=== PATIENT | female | born 1970 | race Caucasian/White ===

== ENCOUNTER 2020-06-10 07:43 | Emergency (ER) | payer OTHER ==
[~2020-06-10] VITALS: Ht 167.6 cm; Wt 97.5 kg
[~2020-06-10 07:43] MED LIST: CYCLOBENZAPRINE5 MG PO; MOBIC7.5 MG PO; MULTIPLE VITAM1 EAC2 PO; PREMPRO 0.625-1 EAC1 PO; SENNA8.6 MG PO
[2020-06-10 07:49] VITALS: BP 140/82
== END 2020-06-10 09:10 | disposition home or self-care (01) ==
LOC: ER 07:43
DX: S20.224A Contusion of middle back wall of thorax, initial encounter (principal); Z90.710 Acquired absence of both cervix and uterus; Z79.899 Other long term (current) drug therapy; Z88.8 Allergy status to other drugs, medicaments and biological substances; Z91.048 Other nonmedicinal substance allergy status; W18.49XA Other slipping, tripping and stumbling without falling, initial encounter; Y93.89 Activity, other specified; Y92.89 Other specified places as the place of occurrence of the external cause; Y99.8 Other external cause status